=== PATIENT | male | born 1985 | race Caucasian/White ===

== ENCOUNTER 2020-12-08 10:45 | Outpatient (CLI) | payer OTHER, SELFPAY ==
--- NOTE | ~2020-12-08 | XR_ITS ---
EXAMINATION: XR hand RT 2V DATE: 12/08/2020 11:00 INDICATION: Pain at the right third metacarpophalangeal joint TECHNIQUE: Posteroanterior and lateral views of the right hand were obtained. COMPARISON: None. FINDINGS: Alignment is normal. No fracture. Joint spaces are normal. No erosions or periosteal reaction. Soft t issues are unremarkable. IMPRESSION: 1. Negative right hand radiographs. Reviewed, dictated and finalized at location A.
== END 2020-12-08 10:46 | disposition home or self-care (01) ==
LOC: ANHIMG 10:50
PROVIDERS: PCP Internal Medicine; Visit Provider Nurse Practitioner
DX: M79.641 Pain in right hand (principal)
CPT/HCPCS: 73120

== ENCOUNTER 2021-12-24 18:07 | Emergency (ER) | payer OTHER, SELFPAY ==
[2021-12-24 18:14] VITALS: BP 138/93; PULSE 86; RESP 16; TEMP 36.3; O2SAT 100
--- NOTE | 2021-12-24 18:18 | ED.WOUNDLAC ---
HPI - Wound/Laceration General Chief Complaint: Wound/Laceration Stated Complaint: tetnus shot Time Seen by Provider: 12/24/21 18:24 Source: patient and RN notes reviewed Mode of arrival: ambulatory Limitations: no limitations History of Present Illness HPI narrative: 36-year-old male presents with concern for wound to the left lower leg. Reports during a training at work a piece of metal from a car hit his leg. He reports it did not hay his pants, however underneath his pant leg he has an open wound. He reports he presented for care because he needs a tetanus shot. He denies any surrounding erythema, edema, drainage. Denies any distal decreased sensation, strength, range of motion, circulation. Related Data Home Medications Medication Instructions Recorded Confirmed adalimumab [Humira(CF) Pen] 40 mg SUBCUT DAILY 12/24/21 12/24/21 Allergies Allergy/AdvReac Type Severity Reaction Status Date / Time No Known Allergies Allergy Unverified 08/06/17 17:01 Review of Systems Review of Systems: CONSTITUTIONAL: Denies malaise, chills, sweats, or fever. SKIN: Reports wound to the left anterior lower leg MUSCULOSKELETAL: Denies muscle skeletal pain NEUROLOGIC: Denies numbness, weakness All systems reviewed & are unremarkable except as noted in HPI and below PMFSH Past Medical History Medical History (Updated 12/24/21 @ 18:32 by Suyapa Ortega NP) Abnormal EKG Anxiety Asthma Essential (primary) hypertension History of benign essential tremor Psoriasis Surgical History Surgical History History of removal of skin mole History of rotator cuff surgery left Family History Family History Father Hypertension Mother Hypertension Other Cerebrovascular accident Diabetes mellitus Family history of cardiovascular disease Social History Social History Smoking status: Never smoker Alcohol intake: current Alcohol use details: socially Comments At time of signature, agree with nursing past medical, surgical, social and family history. There is no relevant family history pertinent to the presenting complaint Exam Narrative: GENERAL: Well-appearing, well-nourished, and in no acute distress. HEAD: Normocephalic, atraumatic. EYES: PERRLA, conjunctivae clear ENT: Mucous membranes moist. NECK: Supple. No lymphadenopathy CHEST: Clear to auscultation. No respiratory distress. HEART: Regular rate and rhythm. SKIN: Warm, dry. 1 cm abrasion noted to the anterior mid left lower leg, wound bed beefy red without induration, surrounding erythema, edema, drainage. Neurovascular status distal to the wound is unremarkable NEURO: Alert and oriented x3. PSYCH: Normal mood and affect Course Course Emergency Course: Patient is aware of diagnosis, understands and agrees to treatment plan. Anticipatory guidance given. Patient agrees to follow-up as directed and is aware of reasons to seek care at the emergency department. Portions of this record may have been created with voice recognition software Level of Care: Express Care Visit Vital Signs Vital signs: Vital Signs Temperature 97.4 F L 12/24/21 18:14 Pulse Rate 86 12/24/21 18:14 Respiratory Rate 16 12/24/21 18:14 Blood Pressure 138/93 H 12/24/21 18:14 Pulse Oximetry 100 12/24/21 18:14 Temperature 97.4 F L 12/24/21 18:14 Pulse Rate 86 12/24/21 18:14 Respiratory Rate 16 12/24/21 18:14 Blood Pressure 138/93 H 12/24/21 18:14 Pulse Oximetry 100 12/24/21 18:14 Reviewed. MDM - Wound/Laceration MDM Narrative Medical decision making narrative: Exam findings show no acute concerns or changes; patient is non-toxic appearing and is in no distress. Patient is appropriate for outpatient treatment and follow-up. Differential Diagnosis Differential diagnosis: Likely
[2021-12-24 18:22] VITALS: BP 138/93; PULSE 86; RESP 16; TEMP 36.3; O2SAT 100
[2021-12-24] MEDS: TETANUS,DIPHTHERIA,AC PERTUSSIS ADULT (0.5 ML) BOOSTRIX IM (18:30)
== END 2021-12-24 18:46 | disposition home or self-care (01) ==
PROVIDERS: Emergency Provider Nurse Practitioner; PCP Internal Medicine
DX: S80.812A Abrasion, left lower leg, initial encounter (principal); W22.8XXA Striking against or struck by other objects, initial encounter; Y99.0 Civilian activity done for income or pay; Z23 Encounter for immunization; J45.909 Unspecified asthma, uncomplicated; I10 Essential (primary) hypertension
CPT/HCPCS: 90471; 90715; 99212; G0463

== ENCOUNTER → 2022-05-16 10:15 | Outpatient (CLI) | payer OTHER, SELFPAY ==
--- NOTE | ~2022-05-16 | XR_ITS ---
EXAMINATION: XR finger 3rd LT min 2V DATE: 05/16/2022 10:23 INDICATION: Left hand third digit mallet finger. TECHNIQUE: 3 views of left hand third digit were obtained. COMPARISON: None. FINDINGS: There is hyperextension of third proximal interphalangeal joint and flexion of third distal interphalangeal joint. No fracture. Joint spaces are normal. IMPRESSION: 1. [place]-neck deformity of left hand third digit. Reviewed, dictated and finalized at location A.
== END ==
PROVIDERS: PCP Nurse Practitioner; Visit Provider Nurse Practitioner
DX: M20.012 Mallet finger of left finger(s) (principal)
CPT/HCPCS: 73140

== ENCOUNTER 2023-06-12 09:37 | Outpatient (CLI) | payer OTHER, SELFPAY ==
--- NOTE | 2023-06-12 09:45 | ECHO_ITS ---
Patient Info Name: Kyrie Sandhu Age: 37 years : 1985 Gender: Male Ht: 72 in Wt: 195 lbs BSA: 2.13 m2 HR: 67 bpm BP: 148 / 93 mmHg Technical Quality: Good Exam Date: 06/12/2023 10:01 AM Exam Location: Echo Lab Patient Status: Outpatient Admit Date: 06/12/2023 Staff Ordering Physician: Araceli Solano Marketing Finance Manager: Melony Stanford RDCS Attending Provider: Araceli Solano Referring Physician: Russ SUAREZ; Exam Type: CA echo doppler color flow Study Info Indications I45.10 - Unspecified right bundle-branch block Complete two-dimensional, color flow and Doppler transthoracic echocardiogram is performed. Summary 1. Complete two-dimensional, color flow and Doppler transthoracic echocardiogram is performed. 2. Left ventricular chamber dimension is mildly enlarged. 3. Left ventricular systolic function is normal, estimated at 55-60%. 4. The left ventricular diastolic function is normal. 5. E/e' 5 is not elevated. 6. Global longitudinal strain is normal at -17.9%. 7. There is trace tricuspid valve regurgitation. 8. Mild pulmonary hypertension, estimated pulmonary arterial systolic pressure is 40 mmHg. 9. There is trace pulmonic regurgitation. Left Ventricle E/e' 5 is not elevated. Global longitudinal strain is normal at -17.9%. Left ventricular chamber dimension is mildly enlarged. Left ventricular systolic function is normal, estimated at 55-60%. The left ventricular diastolic function is normal. Right Ventricle Right ventricular systolic function is normal and with normal TAPSE 3.0 cm. Right ventricular chamber dimension is normal. Left Atria Left atrial chamber dimension is normal. Right Atria Right atrial chamber dimension is normal. Aortic Valve The aortic valve is trileaflet. There is no aortic valve stenosis. There is no aortic valve regurgitation. Pulmonic Valve There is trace pulmonic regurgitation. Mitral Valve There is no mitral valve stenosis. There is no mitral valve regurgitation. Tricuspid Valve There is trace tricuspid valve regurgitation. Mild pulmonary hypertension, estimated pulmonary arterial systolic pressure is 40 mmHg. Pericardium/Pleural There is no pericardial effusion. Inferior Vena Cava Normal inferior vena cava with >50% collapse upon inspiration consistent with normal right atrial pressure, 5 mmHg. Aorta The aortic root size at the sinus of Valsalva is normal. Left Ventricular Outflow Tract Name Value Normal LVOT 2D LVOT Diameter 2.0 cm LVOT Doppler LVOT Peak Gradient 4 mmHg LVOT Mean Gradient 2 mmHg LVOT VTI 21 cm LVOT VTI/AV VTI Ratio 0.9 LVOT Stroke Volume 68 ml LVOT CO 4.4 l/min LVOT CI 2.0 l/min/m2 Pulmonic Valve Name Value Normal RVOT Doppler RVOT Peak Gradie
== END 2023-06-12 09:38 | disposition home or self-care (01) ==
LOC: ANHCARD 09:38
PROVIDERS: PCP Internal Medicine; Visit Provider Clinical Nurse Specialist
DX: I45.10 Unspecified right bundle-branch block (principal); I27.20 Pulmonary hypertension, unspecified
CPT/HCPCS: 93306

== ENCOUNTER 2023-07-07 08:40 | Outpatient (CLI) | payer OTHER, SELFPAY ==
--- NOTE | 2023-07-12 13:46 | WPDHOMESLEEP ---
Sleep Study - Home Unattended Date of Study: 07/07/23 Ordering Provider: ANTON Pfeiffer-C Interpreting Provider: Thi Bryant MD [place] Sleep Study Type: Watch PAT Height: 1.83 m Weight: 86.183 kg Body Mass Index: 25.7 Neck Circumference (inches): 15 [place]: 6 Reason for Sleep Study Witnessed apneas, excessive daytime sleepiness Pulmonary hypertension on echo Jun 12, 2023 RVSP 40 mmHg Sleep History Kyrie Sandhu is a 37-year-old man with pulmonary hypertension on an echo. He never awakens from sleep feeling short of breath. He never wakes at night with heartburn, belching or coughing.??He occasionally snores, rarely snores loudly enough that others complain. He occasionally has trouble sleeping when he has a cold. He rarely wakes up gasping for breath during the night. He rarely has breathing problems at night witnessed by his , however she has witnessed him having apnea when he is sick. He never sweats excessively at night. He occasionally notices his heart pounding or beating irregularly during the night. He rarely falls asleep during the day. He never falls asleep involuntarily, never falls asleep while driving. He never experiences loss of muscle tone with strong emotion. 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 He never feels paralyzed on waking or falling asleep. He never experiences vivid dreams upon waking or falling asleep. He never feels afraid of going to sleep. He rarely has nightmares. He rarely recalls his dreams. He occasionally has thoughts racing through his mind. He occasionally feels sad or depressed. He occasionally feels anxiety. He rarely notices parts of his body jerk. He never kicks during the night. He occasionally feels crawling or aching feelings in his legs. He never feels leg pain at night. He never has morning jaw pain, never grinds his teeth at night. He rarely feels bothered by pain during the day, rarely awakened by pain during the night. He occasionally wakes up feeling stiff in the morning, and he occasionally wakes feeling sore or achy. He occasionally awakens with pain in his neck, spine, or joints.He frequetnly has excessive daytime sleepiness, occasionally wakes up feeling refreshed. Normal bedtime is 10:00 p.m. normally, 11:00 p.m. weekends, falling asleep within 15 min to 1 hour, waking at 6:30 a.m. on days that he works, and 8:00 a.m. on days off. He wakes 1-2 times at night for a few minutes, returns to sleep quickly. He typically gets between 5-8 hours of sleep per night. He takes naps in the day, may feel refreshed after a short nap. He works 24 hours on, 48 hours off. He is drowsy for an hour after waking. He feels better in the evening compared to other times of day. He has lost weight in the last year. Habits:??Tobacco:never Caffeine:2-3 per day. Alcohol:1-2 average daily Recreational substances: none PMFSH Past Medical History Medical History Abnormal EKG Anxiety Asthma Essential (primary) hypertension History of benign essential tremor Psoriasis Surgical History Surgical History History of removal of skin mole History of rotator cuff surgery left Family History Family History Father Hypertension Mother Hypertension Other Cerebrovascular accident Diabetes mellitus Family history of cardiovascular disease Social History Social History Social History: Caffeine-daily Smoking status: Never smoker Alcohol intake: current Alcohol use details: socially Substance use: never Substance use type: does not use Lack of Transportation: No Lack of Food: Never True Current Housing: I Have Housing Concerned About Future Housing: No Difficulty Paying Gas/Electric Bills: No D
[2023-07-12 13:52] VITALS: BMI 25.7
== END 2023-07-11 10:21 | disposition home or self-care (01) ==
LOC: ANHCSM 08:42
PROVIDERS: PCP Internal Medicine; Visit Provider Clinical Nurse Specialist
DX: G47.10 Hypersomnia, unspecified (principal); G47.31 Primary central sleep apnea
CPT/HCPCS: 95800

== ENCOUNTER 2023-07-09 14:25 | Emergency (ER) | payer OTHER, SELFPAY ==
[2023-07-09 14:57] VITALS: BP 127/88; PULSE 80; RESP 16; TEMP 36.7; O2SAT 100
--- NOTE | 2023-07-09 16:02 | ED.URI ---
HPI - URI/Sore Throat General Chief Complaint: Upper Respiratory Infection Stated Complaint: SORE THROAT/FEVER/HEADACHE/STREP EXPOSURE Time Seen by Provider: 07/09/23 16:02 Source: patient, RN notes reviewed and old records reviewed Mode of arrival: ambulatory Limitations: no limitations History of Present Illness HPI Narrative: 37 year old male presents to [facility] care with complaints of 3 day history of sore throat, denies any known fevers,cough, sinus congestion or drainage or any body aches. Patient reports that his kids were sick last week and was diagnosed with strep here in clinic today. Patient reports that he has taken Tylenol and Ibuprofen for his discomfort.Patient describes his throat as feeling irritated and raw. MD elicited complaint: cough and sore throat Pertinent past history: immunosuppression Onset (ago): day(s) (3) Pain scale (0-10): 5 Exacerbating factors: swallowing Treatments prior to arrival: acetaminophen and ibuprofen Related Data Home Medications Medication Instructions Recorded Confirmed adalimumab 40 mg/0.4 mL 40 mg subcut [id number] 12/24/21 07/09/23 subcutaneous pen kit (Humira(CF) Pen) Allergies Allergy/AdvReac Type Severity Reaction Status Date / Time No Known Allergies Allergy Unverified 07/09/23 15:03 Review of Systems Review of Systems: CONSTITUTIONAL: Denies malaise, chills, sweats, or fever. EYES: Denies visual changes, redness, or discharge. ENT: Reports minimal rhinorrhea, congestion, no sinus pain,no otalgia and positive for sore throat. CARDIOVASCULAR: Denies chest pain, palpitations, or edema. RESPIRATORY: Reports no cough.? Denies dyspnea. GASTROINTESTINAL: Denies abdominal pain, nausea, vomiting, diarrhea SKIN: Denies rash or itching. MUSCULOSKELETAL: Denies myalgia. NEUROLOGIC: Denies headache. All systems reviewed & are unremarkable except as noted in HPI and below PMFSH Past Medical History Medical History Abnormal EKG Anxiety Asthma Essential (primary) hypertension History of benign essential tremor Psoriasis Surgical History Surgical History History of removal of skin mole History of rotator cuff surgery left Family History Family History Father Hypertension Mother Hypertension Other Cerebrovascular accident Diabetes mellitus Family history of cardiovascular disease Social History Social History Social History: Caffeine-daily Smoking status: Never smoker Alcohol intake: current Alcohol use details: socially Substance use: never Substance use type: does not use Lack of Transportation: No Lack of Food: Never True Current Housing: I Have Housing Concerned About Future Housing: No Difficulty Paying Gas/Electric Bills: No Difficulty Paying for Meds: No Currently Unemployed: No Education: Bachelor's Degree Difficulty w/ Childcare or Family Care: No Comments At time of signature, agree with nursing past medical, surgical, social and family history. There is no relevant family history pertinent to the presenting complaint Exam Narrative: GENERAL: Well-appearing, well-nourished, and in no acute distress. HEAD: Normocephalic EYES: PERRLA, conjunctivae clear ENT: Nares clear, turbinates edematous and erythematous, clear discharge. Mucous membranes moist. TM pearly laird with dull light reflex bilaterally; no tragal tenderness. Oropharynx erythematous without lesions. Tonsils red enlarged and without exudate, no drooling, no hoarseness, no trismus, uvula midline. NECK: Supple.lymphadenopathy CHEST: Clear to auscultation, breath sounds equal. No wheezing, rhonchi, rales, or stridor. No respiratory distress, speaks in full sentences.SAO2 100% on room air HEART: Reg
== END 2023-07-09 16:08 | disposition home or self-care (01) ==
PROVIDERS: Emergency Provider Registered Nurse; PCP Internal Medicine
DX: J02.0 Streptococcal pharyngitis (principal); J45.909 Unspecified asthma, uncomplicated; I10 Essential (primary) hypertension; L40.9 Psoriasis, unspecified
CPT/HCPCS: 87880; 99213; G0463

== ENCOUNTER 2023-07-18 09:52 | Outpatient (CLI) | payer OTHER, SELFPAY ==
[2023-08-11 15:26] VITALS: BMI 26.6
--- NOTE | 2023-08-11 15:26 | WPDSLEEPSTUD ---
Sleep Study Date of Study: 07/18/23 Ordering Provider: VIVI Pfeiffer Interpreting Physician: Mariya Moscoso, DO Sleep Study Type: CPAP Titration Height: 1.83 m Weight: 88.904 kg Body Mass Index: 26.6 Neck Circumference (inches): 15 [place]: 6 Reason for Sleep Study The patient had a WatchPAT home sleep test on 07/07/2023 that showed an AHI of 57.5 with a central apnea index of 37.5. Sleep History Kyrie Sandhu is a 37-year-old man with pulmonary hypertension on an echo. He never awakens from sleep feeling short of breath. He never wakes at night with heartburn, belching or coughing.??He occasionally snores, rarely snores loudly enough that others complain. He occasionally has trouble sleeping when he has a cold. He rarely wakes up gasping for breath during the night. He rarely has breathing problems at night witnessed by his , however she has witnessed him having apnea when he is sick. He never sweats excessively at night. He occasionally notices his heart pounding or beating irregularly during the night. He rarely falls asleep during the day. He never falls asleep involuntarily, never falls asleep while driving. He never experiences loss of muscle tone with strong emotion. 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 He never feels paralyzed on waking or falling asleep. He never experiences vivid dreams upon waking or falling asleep. He never feels afraid of going to sleep. He rarely has nightmares. He rarely recalls his dreams. He occasionally has thoughts racing through his mind. He occasionally feels sad or depressed. He occasionally? feels anxiety. He rarely notices parts of his body jerk. He never kicks during the night. He occasionally feels crawling or aching feelings in his legs. He never feels leg pain at night. He never has morning jaw pain, never grinds his teeth at night.? He rarely feels bothered by pain during the day, rarely awakened by pain during the night. He occasionally wakes up feeling stiff in the morning, and he occasionally wakes feeling sore or achy.? He occasionally awakens with pain in his neck, spine, or joints.He frequently has excessive daytime sleepiness, occasionally wakes up feeling refreshed. Normal bedtime is 10:00 p.m. normally, 11:00 p.m. weekends, falling asleep within 15 min to 1 hour, waking at 6:30 a.m. on days that he works, and 8:00 a.m. on days off. He wakes 1-2 times at night for a few minutes, returns to sleep quickly. He typically gets between 5-8 hours of sleep per night. He takes naps in the day, may feel refreshed after a short nap. He works 24 hours on, 48 hours off. He is drowsy for an hour after waking. He feels better in the evening compared to other times of day.? He has lost weight in the last year. Habits:??Tobacco:never? ? ? Caffeine:2-3 per day. ? Alcohol:1-2 average daily ? ? Recreational substances: none PMFSH Past Medical History Medical History Abnormal EKG Anxiety Asthma Essential (primary) hypertension History of benign essential tremor Psoriasis Surgical History Surgical History History of removal of skin mole History of rotator cuff surgery left Family History Family History Father Hypertension Mother Hypertension Other Cerebrovascular accident Diabetes mellitus Family history of cardiovascular disease Social History Social History Social History: Caffeine-daily Smoking status: Never smoker Alcohol intake: current Alcohol use details: socially Substance use: never Substance use type: does not use Lack of Transportation: No Lack of Food: Never True Current Housing: I Have Housing Concerned About Future Housing: No 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
== END 2023-07-19 07:14 | disposition home or self-care (01) ==
LOC: ANHCSM 09:54
PROVIDERS: PCP Internal Medicine; Visit Provider Clinical Nurse Specialist
DX: G47.31 Primary central sleep apnea (principal)
CPT/HCPCS: 95811

== ENCOUNTER 2023-12-19 09:11 | Outpatient (CLI) | payer BC, SELFPAY | END 2023-12-19 09:12 | PROVIDERS: PCP Chiropractor; Visit Provider Nurse Practitioner | DX: M25.561 Pain in right knee (principal) | CPT/HCPCS: 73564 ==

== ENCOUNTER 2024-01-08 08:26 | Outpatient (CLI) | payer BC, SELFPAY ==
--- NOTE | ~2024-01-08 | MR_ITS ---
MRI of the right knee Clinical history: Pain Technique: Coronal proton density and proton density-weighted images, sagittal proton-density and T2 fat-sat images, and axial proton-density fat-saturated images were acquired. Findings: Anterior and posterior cruciate ligaments are intact. Medial collateral ligament and the la teral collateral ligament complex are intact. Popliteus tendon is intact. Medial meniscus intact, without evidence of tear. There is focal vertical tear of the posterior horn of the lateral meniscus. There is moderate chondromalacia at the medial patellar facet. Femoral trochlear cartilage is intact. Medial and lateral compartment articular cartilage is well preserved. Extensor mechanism is intact. No significant joint effusion or Dias's cyst. Impression: Vertical tear of the posterior horn of the lateral meniscus. Focal moderate chondromalacia the medial patellar facet. Reviewed, dictated and finalized at [facility]. Impression: Vertical tear of the posterior horn of the lateral meniscus. Focal moderate chondromalacia the medial patellar facet.
== END 2024-01-08 08:27 ==
PROVIDERS: PCP Internal Medicine; Visit Provider Nurse Practitioner
DX: M25.561 Pain in right knee (principal); S83.281A Other tear of lateral meniscus, current injury, right knee, initial encounter; M94.261 Chondromalacia, right knee
CPT/HCPCS: 73721

== ENCOUNTER 2024-05-13 00:09 | Day surgery (SDC) | payer BC, SELFPAY ==
[2024-05-10 09:09] VITALS: BMI 25.8
--- NOTE | 2024-05-10 09:16 | PC.NURSE ---
Report to the Outpatient Waiting Room, entrance under the green pavilion located off [facility], at time _1130_ on date _[id number]_. Planned Procedure Time: _130pm_.? Time changes happen often and if your time is changed the preop area will call you the afternoon before. - You and your visitor will be asked to self-screen and do not enter if you have any COVID symptoms. Please call surgeon if you need to reschedule. - A mask is optional within the hospital at this time. Patients may have clear liquids (water, carbonated beverages, clear teas, apple juice) until 3 hours prior to surgery with a maximum of 20 ounces. - No food from midnight until time of surgery and no smoking Take only the following medications with a SIP of water on the morning of surgery: ___Duloxetine DO NOT STOP ANY OF YOUR OTHER PRESCRIPTION MEDICATIONS PRIOR TO SURGERY EXCEPT THE FOLLOWING Medications to discontinue per physician ____Vitamins Date to take last dose____Stop now Please no make-up, nail swedish, hairspray, perfume, deodorant, or body powder the day of surgery.? No jewelry (including any body piercings) or valuables the day of surgery, leave them at home.? Please take a shower or bath the night before, or the morning of, surgery with an antibacterial soap.? Wear comfortable, loose fitting clothing.? - Jewelry must be removed prior to entering the operating room.? Rings and piercings that are not removed may be cut off. - The hospital will not accept responsibility for valuables.? - Please leave all valuables, including medications, at home the day of surgery. If you are going home after surgery, a licensed front load trash truck driver must drive you home.? - NO public transportation without another adult if you receive anesthesia. - We recommend that an adult stay with you for 24 hours following discharge. - We also recommend that you do not drive, make important decision, drink alcoholic beverages, or take any drugs that were not prescribed by your health care provider for at least 24 hours after your discharge time. Follow any additional instructions given to you from your surgeon. Telephone instructions given to __Craig__and asked if any additional questions and then verbalized understanding. Patient advised to call surgeon office or pre surgery nurse liaison [phone] if any additional questions.
[2024-05-13] VITALS (8 sets, daily range): BP systolic 104–129; BP diastolic 55–96; PULSE 50–65; RESP 13–16; TEMP 36.4–36.6; O2SAT 99–100
--- NOTE | 2024-05-13 09:27 | WPDHPUPDATE1 ---
History and Physical Update Update Date/Time: 05/13/24 09:27 History and Physical has been reviewed, including an updated exam of the patient. There are NO changes in the patient's condition. Risks, benefits, and alternatives have been discussed and questions answered. Patient agrees to proceed with procedure.
[2024-05-13] MEDS: ACETAMINOPHEN 500 MG TABLET 1000 MG PO (11:28)
--- NOTE | 2024-05-13 11:32 | WPDANESEPPF ---
Anes - Initial Pre Proc Eval Procedure: Operation Date: 05/13/24 13:30 Proposed Procedures p Right Knee Arthroscopy with Partial Lateral Meniscectomy - Cong Pavon MD Date/Time: 05/13/24 11:32 Surgeon: Cong Pavon MD Pre Op Diagnosis: Rt Knee lat Meniscus tear Patient Data Age: 38 Gender: M Height: 1.83 m Weight: 86.4 kg Allergies Allergy/AdvReac Type Severity Reaction Status Date / Time No Known Allergies Allergy Verified 05/13/24 11:19 Home Medications Medication Instructions Recorded Confirmed Type duloxetine 30 mg capsule,delayed 30 mg PO DAILY #90 caps 09/29/23 05/13/24 Rx release risankizumab-rzaa 150 mg/mL 150 mg subcut ONCE 12/19/23 05/13/24 History subcutaneous pen injector (Skyrizi) CPAP #1 ea 02/17/24 05/10/24 Rx alprazolam 0.5 mg tablet (Xanax) 0.5 mg PO QHS PRN sleep #20 tabs 04/06/24 05/13/24 Rx multivitamin 1 tablet PO DAILY 05/10/24 05/13/24 History Patient hx anesthesia problems: none Family hx anesthesia problems: none Results Review: All pre-operative results and documents have been reviewed as part of the pre-operative evaluation. [facility] Past Medical History Medical History Abnormal EKG Anxiety Asthma Essential (primary) hypertension History of benign essential tremor Psoriasis Surgical History Surgical History History of removal of skin mole History of rotator cuff surgery left Family History Family History Father Hypertension Mother Hypertension Other Cerebrovascular accident Diabetes mellitus Family history of cardiovascular disease Social History Social History Social History: Caffeine-daily Smoking status: Never smoker Alcohol intake: current Drinks per week: 3 Alcohol use details: socially Substance use: never Substance use type: does not use Do You Feel Safe in your Home?: Yes Lack of Transportation: No Lack of Food: Never True Current Housing: I Have Housing Concerned About Future Housing: No Difficulty Paying Gas/Electric Bills: No Difficulty Paying for Meds: No Currently Unemployed: No Education: Bachelor's Degree Difficulty w/ Childcare or Family Care: No Living arrangements: with family Spiritual care concerns: No Anes - Eval Final PreProcedure Day of Procedure 05/13/24 11:32 Patient weight: normal Heart: regular rate and rhythm Lungs: clear to auscultation Airway: Mallampati scale class II Neurological: alert and oriented Last oral intake: >/= 8 hours ASA classification: II Emergent: no Anesthetic plan: proceed Anesthesia type and monitoring: general LMA and standard monitoring Results Review: All pre-operative results and documents have been reviewed as part of the pre-operative evaluation. Informed Consent: The patient's anesthetic plan and its attendant risks and benefits were discussed with the patient/family/POA. Questions were solicited and answers provided to the satisfaction of the patient/family/POA.
[2024-05-13] MEDS: LACTATED RINGERS 1,000 ML 30 ML IV CONT (11:40)
[2024-05-13] MEDS: KETOROLAC 15 MG/ML VIAL (*BKC) IV PUSH (11:52)
[2024-05-13] MEDS: ceFAZolin 2 GM/D5W 50 ML 2 GM/50 ML BAG IVPB (12:13)
[2024-05-13] MEDS: BUPIVACAINE/EPINEPHRINE 0.5% 50 ML VIAL 20 ML INFILTRATE (12:29)
--- NOTE | 2024-05-13 14:18 | P.OP_ITS ---
Procedure Note - Detailed Date of Procedure 05/13/24 Pre-op Diagnosis Rt Knee lateral Meniscus tear Post-op Diagnosis Same Procedure Performed Arthroscopic partial lateral meniscectomy, right knee. Surgeon Cong Pavon MD Yeast Culture Developer Kathryn Lopez PA-C Anesthesia General Findings Posterior horn tear with large displaced fragment into the posterior intercondylar notch. Good remaining peripheral rim of meniscus. No chondromalacia or other abnormal findings. ACL intact. Description of Procedure The patient was identified and the surgical site confirmed and signed in the preoperative holding area. Antibiotics were started per protocol, and the patient was brought to the operative room and transferred to the OR table. A general anesthetic was administered. Supine position with the operative lower extremity position in the leg rey after placement of a well padded tourniquet. The leg support was lowered and the contralateral limb was supported with a soft bolster. The knee was prepped and draped in the usual sterile fashion. A time-out was performed. The portal sites were marked and infiltrated with 0.5% Marcaine 20 mL. The limb was exsanguinated and the tourniquet inflated to 300 mL Hg. Standard inferolateral and inferomedial portals were established. Inflow was obtained with the saline pump. The camera was introduced. Diagnostic inspection of the joint was accomplished. The ports tear horn tear was exten sive, and matched the pathology seen on MRI. The meniscus was debrided with the arthroscopic shaver and punches until stable. The radiofrequency probe was also used for further d?bridement. The arthroscopic instruments were removed. The tourniquet released and wounds closed with subcutaneous 4-0 Monocryl absorbable suture. Steri strips and a sterile dressing were applied. A light elastic wrap was placed. The patient was extubated and brought to the recovery room in stable condition. Estimated Blood Loss 5 Drains No Complications No immediate complications Condition Stable Disposition PACU [facility] Billing Surgery - Charge Forward: Surgery Billing
== END 2024-05-13 15:19 | disposition home or self-care (01) ==
PROVIDERS: PCP Internal Medicine; Visit Provider Orthopaedic Surgery
PROC: (CPT 29870; principal; 2024-05-13 13:30)
DX: M23.351 Other meniscus derangements, posterior horn of lateral meniscus, right knee (principal); I10 Essential (primary) hypertension; L40.9 Psoriasis, unspecified; Z79.620 Long term (current) use of immunosuppressive biologic
CPT/HCPCS: 29881; A9270; J0690; J1100; J1885; J2003; J2250; J2405; J2704; J3010; J7120

== ENCOUNTER 2024-05-30 11:26 | Emergency (ER) | payer BC, SELFPAY ==
--- NOTE | 2024-05-30 11:27 | ED_ITS ---
HPI - General Adult General Chief complaint: Upper Respiratory Infection Stated complaint: Strep Symptoms Time Seen by Provider: 05/30/24 11:27 Source: patient Mode of arrival: ambulatory Limitations: no limitations History of Present Illness HPI narrative: 38-year-old male patient presents to the [facility] with complaints of a sore throat, headache and a low-grade fever of 99 for the past 2 days. 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 Patient states he has had strep before and typically this is any trigger and activates in flares up his autoimmune disorder so he wants to come in to be seen right away when symptoms started. Denies any chest pain, shortness breath, abdominal pain, nausea, or diarrhea Related Data Home Medications Medication Instructions Recorded Confirmed risankizumab-rzaa 150 mg/mL 150 mg subcut ONCE 12/19/23 05/28/24 subcutaneous pen injector (Skyrizi) multivitamin 1 tablet PO DAILY 05/10/24 05/28/24 Allergies Allergy/AdvReac Type Severity Reaction Status Date / Time No Known Allergies Allergy Verified 05/28/24 09:37 Review of Systems Review of Systems: CONSTITUTIONAL: positive low-grade fever, denies chills, or sweats. EYES: Denies visual changes, redness, or discharge. ENT: Denies rhinorrhea, congestion, positive sore throat, denies otalgia. CARDIOVASCULAR: Denies chest pain, palpitations, or edema. RESPIRATORY: Denies cough or dyspnea. GASTROINTESTINAL: Denies abdominal pain, nausea, vomiting, or diarrhea. GENITOURINARY: Denies dysuria or hematuria. SKIN: Denies rash or itching. MUSCULOSKELETAL: Denies back pain, joint pain, or myalgia. NEUROLOGIC: positive headache, denies numbness, or weakness. PSYCHIATRIC: Denies anxiety or depression. [facility] Past Medical History Medical History Abnormal EKG Anxiety Asthma Essential (primary) hypertension History of benign essential tremor Psoriasis Surgical History Surgical History History of removal of skin mole History of rotator cuff surgery left Family History Family History Father Hypertension Mother Hypertension Other Cerebrovascular accident Diabetes mellitus Family history of cardiovascular disease Social History Social History Social History: Caffeine-daily Smoking status: Never smoker Alcohol intake: current Drinks per week: 3 Alcohol use details: socially Substance use: never Substance use type: does not use Do You Feel Safe in your Home?: Yes Lack of Transportation: No Lack of Food: Never True Current Housing: I Have Housing Concerned About Future Housing: No Difficulty Paying Gas/Electric Bills: No Difficulty Paying for Meds: No Currently Unemployed: No Education: Bachelor's Degree Difficulty w/ Childcare or Family Care: No Living arrangements: with family Spiritual care concerns: No Comments At the time of my signature I agree with nursing past medical history, surgical, social, and family history. There is no relevant family history pertinent to the presenting complaint. Exam Narrative: GENERAL: Well-appearing, well-nourished, and in no acute distress. HEAD: Normocephalic, atraumatic. EYES: PERRLA and EOMI. ENT: Nares clear, no rhinorrhea or epistaxis. Mucous membranes moist. NECK: Supple. No lymphadenopathy CHEST: Clear to auscultation. No respiratory distress. HEART: Regular rate and rhythm. No murmur heard. Normal peripheral pulses. ABDOMEN: Soft, nontender, nondistended, normal active bowel sounds. EXTREMITIES: Normal range of motion. No edema. SKIN: Warm, dry, no rash. NEURO: No focal deficits. Alert and oriented x3. Course Course Level of Care: Express Care Visit Vital Signs Vital signs: Vital signs reviewed. Medical Decision Making MDM Narrative Medical decision making narrative: discussed with patient that his rapid strep test today is negative. Discussed with him we will send to the lab for a culture if the culture comes back positive at that time we will place him on antibiotics. Discussed with patient that my viruses can produce same symptoms and highly encouraged [id number] medications like Tylenol ibuprofen to help with the pain, warm salt water gargles, hot tea and honey to help the pain. Lots of rest and fluids. Patient verbalized understanding denies any other questions or concerns at this time. Differential Diagnosis Differential Diagnosis: Differential diagnosis: Viral pharyngitis, pharyngitis, group A strep, infectious mononucleosis, gonococcal pharyngitis, exudative pharyngitis, oral candidiasis. Chronic allergies, postnasal drip, GERD, abscess formation, but glottitis, retropharyngeal abscess formation, or airway obstruction. Critical Care Time Critical Care Time Critical Care Time: No Discharge Plan Discharge Clinical Impression: Exudative pharyngitis Patient Disposition: Home, Self-Care Condition: Stable Instructions: Antibiotic Form, Viral Syndrome (ED) Additional Instructions: A sore throat can be caused by an infection from a virus or bacteria. Sore throat can also be caused by postnasal drip, allergies, and exposure to smoke. A viral sore throat last 3-4 days and cannot be treated with antibiotics. One type of sore throat virus, infectious mononucleosis ( mono ), can last for 3 weeks and older children. The germs that cause these infections are contagious and can be spread by coughing or sharing drinks or utensils. Contact her primary care physician or go to the ER if: Your trouble breathing or swallowing because her throat is swollen or sore. You're drooling because it hurts too much to swallow. You're painful lump in your throat go away after 5 days. You're fever is higher than 10 2??F or last longer than 3 days. You have confusion. You are blood in your throat. You're sore throat should feel better within 3-5 days without treatment if it is caused by virus. You may need the following: Ibuprofen or Tylenol as needed for pain or fever Gargle warm salt water Drink more liquids, cold or warm drinks may help soothe her throat. Humidifier in your room. Cough drops, ice, soft foods, or popsicles may help soothe her throat. A spoonful of honey could help with inflammation and soothe her throat. Wash her hands with soap and water, do not share food or drinks, throat away her toothbrush after 72 hours. Prescriptions: No Action Skyrizi 150 mg/mL pen injector 150 mg subcut ONCE Rx Instructions: every 12 weeks. multivitamin Tablet 1 tablet PO DAILY hydrocodone-acetaminophen 5-325 mg tablet 1 - 2 tablet PO Q4-6H MDD 6 PRN (Reason: pain) Qty: 30 0RF Rx Instructions: Do not take with Xanax. duloxetine 30 mg capsule,delayed release(DR/EC) 30 mg PO DAILY Qty: 90 1RF (DME) CPAP See Rx Instructions .Route .MEDSUPPLY Qty: 1 0RF Rx Instructions: Resmed AirSense 11 CPAP at 8 cm H2O, size extra small F&P Bekah full face mask, CPAP filters/tubing and heated humidity alprazolam [Xanax] 0.5 mg tablet 0.5 mg PO QHS PRN (Reason: sleep) Qty: 20 0RF Rx Instructions: Take 20 minutes prior to wearing the CPAP machine. Follow-up/Referrals: Familia Peterson DO [Primary Care Provider] - Time of Disposition: 12:01
[2024-05-30 11:43] VITALS: BP 147/92; PULSE 76; RESP 20; TEMP 36.9; O2SAT 100
[2024-05-30 11:57] LABS: EDSTREPNEGPOS1 Negative (Negative)
== END 2024-05-30 12:03 | disposition home or self-care (01) ==
PROVIDERS: Emergency Provider Nurse Practitioner Family; PCP Internal Medicine
DX: J02.9 Acute pharyngitis, unspecified (principal); I10 Essential (primary) hypertension; L40.9 Psoriasis, unspecified
CPT/HCPCS: 87081; 87880; 99213; G0463